=== PATIENT | male | born 1985 | race Caucasian/White ===

== ENCOUNTER 2017-01-21 16:38 | Emergency (ER) | payer OTHER ==
[2017-01-21 17:35] VITALS: BP 134/93
--- NOTE | 2017-01-21 17:51 | UC ---
Abdominal Pain Male HPI - HPI Summary HPI Summary: 32 yo male here because he needs a note to return to work has 2 day hx of n/v/d and crampy abd pain missed work yesterday needs note states he had no abd pain today/no vomiting diarrhea today - History of Current Complaint Chief Complaint: UCGeneralIllness Stated Complaint: ABDOMINAL COMPLAINT Time Seen by Provider: 01/21/17 17:31 Hx Obtained From: Patient Onset/Duration: Sudden Onset, Resolved Timing: Constant Severity Initially: Moderate Severity Currently: None Pain Intensity: 0 Pain Scale Used: 0-10 Numeric Location: Diffuse - it was Radiates: No Character: Cramping Aggravating Factor(s):: Nothing - resolved Alleviating Factor(s): Nothing - resolved Associated Signs And Symptoms: Positive: Negative - Allergies/Home Medications Allergies/Adverse Reactions: Allergies Allergy/AdvReac Type Severity Reaction Status Date / Time Acetaminophen [From Tylenol] AdvReac Intermediate See Comment Verified 01/21/17 16:53 PMH/Surg Hx/FS Hx/Imm Hx Previously Healthy: Yes - 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 Other History Of: Negative For: HIV, Hepatitis B, Hepatitis C, Anticoagulant Therapy - Surgical History Surgical History: None - Family History Known Family History: Positive: Hypertension - Social History Alcohol Use: Rare Substance Use Type: Marijuana Substance Use Comment - Amount & Last Used: no other drugs in 2 years Smoking Status (MU): Current Every Day Smoker Type: Cigarettes Amount Used/How Often: 1/2ppd Have You Smoked in the Last Year: Yes When Did the Patient Quit Smoking/Using Tobacco: no cigs in 4 days Household Exposure Type: Cigarettes Review of Systems Constitutional: Negative Skin: Negative Eyes: Negative ENT: Negative Respiratory: Negative Cardiovascular: Negative Gastrointestinal: Negative Genitourinary: Negative Motor: Negative Neurovascular: Negative Musculoskeletal: Negative Neurological: Negative Psychological: Negative Is Patient Immunocompromised?: No All Other Systems Reviewed And Are Negative: Yes Physical Exam Triage Information Reviewed: Yes Appearance: Well-Appearing, No Pain Distress, Well-Nourished Vital Signs: Initial Vital Signs Temp 99.5 F 01/21/17 16:49 Pulse 80 01/21/17 16:49 Resp 16 01/21/17 16:49 Pulse Ox 100 01/21/17 16:49 Vital Signs Reviewed: Yes Eyes: Positive: Conjunctiva Clear, Other: - anicteric sclera ENT: Positive: Hearing grossly normal. Negative: Nasal congestion, Nasal drainage, Trismus, Muffled/hoarse voice Neck: Positive: Supple, Nontender, No Lymphadenopathy Respiratory: Positive: Lungs clear, Normal breath sounds, No respiratory distress, No accessory muscle use Cardiovascular: Positive: RRR, No Murmur Abdomen Description: Positive: Nontender, No Organomegaly, Soft, Bruit. Negative: CVA Tenderness (R), CVA Tenderness (L) Bowel Sounds: Positive: Present Musculoskeletal: Positive: ROM Intact, No Edema Neurological: Positive: Alert Psychological Exam: Normal Skin Exam: Normal Abd Pain Male Course/Dx - Differential Dx/Clinical Impression Provider Diagnoses: resolved vomiting /diarrhea. suspect resolved gastroenteritis Discharge - Discharge Plan Condition: Stable Disposition: HOME Forms: *Work Release Referrals: No Primary Care Phys,NOPCP [Primary Care Provider] - Additional Instructions: call for any questions return for any problems
== END 2017-01-21 17:50 | disposition home or self-care (01) ==
LOC: UCEAST 16:38
DX: R11.11 Vomiting without nausea (principal); R19.7 Diarrhea, unspecified; Z72.0 Tobacco use
CPT/HCPCS: 99211; G0463